=== PATIENT | female | born 1970 | race Caucasian/White ===

== ENCOUNTER → 2023-11-05 09:09 | Outpatient (REF) | payer OTHER, SELFPAY | LOC: HWWDC 09:09 | PROVIDERS: ATTENDING PHYSICIAN Family Medicine | DX: Z12.31 Encounter for screening mammogram for malignant neoplasm of breast (principal) | CPT/HCPCS: 77063; 77067 ==

== ENCOUNTER 2023-12-30 11:51 | Outpatient (RCR) | payer OTHER, SELFPAY | END 2023-12-30 23:59 | disposition home or self-care (01) | LOC: RPT 11:51 | PROVIDERS: ATTENDING PHYSICIAN Family Medicine | DX: M76.31 Iliotibial band syndrome, right leg (principal); G89.29 Other chronic pain; M25.551 Pain in right hip; M54.42 Lumbago with sciatica, left side; M54.41 Lumbago with sciatica, right side; Z73.6 Limitation of activities due to disability | CPT/HCPCS: 97010; 97110; 97112; 97140; 97161 ==

== ENCOUNTER 2024-01-30 10:01 | Outpatient (RCR) | payer OTHER, SELFPAY | END 2024-01-30 23:59 | disposition home or self-care (01) | LOC: RPT 10:01 | PROVIDERS: ATTENDING PHYSICIAN Family Medicine | DX: M54.42 Lumbago with sciatica, left side (principal); M54.41 Lumbago with sciatica, right side; M25.551 Pain in right hip; M76.31 Iliotibial band syndrome, right leg; Z73.6 Limitation of activities due to disability | CPT/HCPCS: 97010; 97110; 97112; 97140 ==

== ENCOUNTER → 2024-02-20 10:40 | Outpatient (REF) | payer OTHER, SELFPAY | LOC: MRI 3T 10:40 | PROVIDERS: ATTENDING PHYSICIAN Psychiatry & Neurology Neurology; FAMILY PHYSICIAN Family Medicine | DX: G25.0 Essential tremor (principal); R26.0 Ataxic gait | CPT/HCPCS: 70553; A9575 ==

== ENCOUNTER 2024-03-05 10:02 | Outpatient (RCR) | payer OTHER, SELFPAY | END 2024-03-05 23:59 | disposition home or self-care (01) | LOC: RPT 10:02 | PROVIDERS: ATTENDING PHYSICIAN Family Medicine | DX: M25.551 Pain in right hip (principal); M76.31 Iliotibial band syndrome, right leg; M54.42 Lumbago with sciatica, left side; M54.41 Lumbago with sciatica, right side; Z73.6 Limitation of activities due to disability | CPT/HCPCS: 97010; 97110; 97112; 97140 ==

== ENCOUNTER → 2024-05-13 10:00 | Outpatient (REF) | payer OTHER, SELFPAY | LOC: MRI 3T 10:00 | PROVIDERS: ATTENDING PHYSICIAN Psychiatry & Neurology Neurology; FAMILY PHYSICIAN Family Medicine | DX: M54.2 Cervicalgia (principal); G25.0 Essential tremor; R26.0 Ataxic gait | CPT/HCPCS: 70544; 72141 ==

== ENCOUNTER → 2024-12-22 11:22 | Outpatient (REF) | payer OTHER, SELFPAY | LOC: WDC 11:22 | PROVIDERS: ATTENDING PHYSICIAN Obstetrics & Gynecology Gynecology; FAMILY PHYSICIAN Family Medicine | DX: Z12.31 Encounter for screening mammogram for malignant neoplasm of breast (principal) | CPT/HCPCS: 77063; 77067 ==